=== PATIENT | male | born 1945 | race Caucasian/White ===

== ENCOUNTER 2017-12-16 20:02 | Emergency (ER) | payer MEDICARE ==
[~2017-12-16] VITALS: Ht 170.2 cm; Wt 79.9 kg
[~2017-12-16 20:02] MED LIST: DOCU100C40 PO; GABA600T2 PO; HYDR-3972 PO; HYDR-569 PO; NO HOME MEDS
[2017-12-16] MEDS ORDERED: tamsulosin 0.4mg capsule PO ONE (21:00)
[2017-12-16 21:38] LABS: CLARITY,URINE CLOUDY (Clear); COLOR,URINE YELLOW (Yellow); GLUCOSE, URINE NEGATIVE (Neg); KETONES,URINE NEGATIVE (Neg); LEUKOCYTE ESTERASE ,URINE MODERATE (Neg); NITRITES, URINE POSITIVE (Neg); OCCULT BLOOD,URINE LARGE (Neg); PROTEIN,URINE NEGATIVE (Neg)
[2017-12-16 22:02] LABS: WBC,URINE 20-30 /HPF (0-4)
[2017-12-16] MEDS ORDERED: FLO0.4C PO (22:02)
[2017-12-16] MEDS ORDERED: CIPR-259 PO (22:02)
[2017-12-16 22:03] LABS: AMORPHOUS URATES 1+; BACTERIA,URINE 3+ /HPF (Neg); MUCUS STRANDS FEW /LPF (Neg); SQUAMOUS EPITHELIAL CELL,UR FEW /LPF (FEW); TRANSITIONAL EPI CELLS,URINE MODERATE /HPF; WBC CLUMPS,URINE MANY /HPF (NEGATIVE)
[2017-12-16] MEDS ORDERED: ciprofloxacin 250mg tablet PO ONE (22:05)
[2017-12-16 22:06] LABS: UA COLLECTION TYPE FOLEY CATH
[2017-12-16 22:21] VITALS: BP 145/80
== END 2017-12-16 22:23 | disposition home or self-care (01) ==
LOC: ER 20:02
DX: N39.0 Urinary tract infection, site not specified (principal); R33.9 Retention of urine, unspecified; N40.0 Benign prostatic hyperplasia without lower urinary tract symptoms; G89.29 Other chronic pain; Z79.899 Other long term (current) drug therapy
CPT/HCPCS: 51702; 81001; 87077; 87088; 87186; 99285; A4315

== ENCOUNTER 2018-07-28 12:06 | Emergency (ER) | payer MEDICARE ==
[~2018-07-28] VITALS: Ht 170.2 cm; Wt 74.5 kg
[~2018-07-28 12:06] MED LIST changes: +HYDR-4383 PO; -HYDR-569 PO
[2018-07-28 12:24] VITALS: BP 131/39
[2018-07-28] MEDS ORDERED: HYDROmorphone 1 mg/ml syringe IM ONE (12:55)
== END 2018-07-28 13:39 | disposition home or self-care (01) ==
LOC: ER 12:09
DX: G89.29 Other chronic pain (principal); R07.89 Other chest pain; Z79.899 Other long term (current) drug therapy
CPT/HCPCS: 96372; 99283; J1170